=== PATIENT | male | born 2005 | race Asian ===

== ENCOUNTER 2023-07-25 09:27 | Outpatient (CLI) | payer OTHER, SELFPAY | END 2023-07-25 09:28 | disposition home or self-care (01) | LOC: AMB 08-14 23:20 | PROVIDERS: Visit Provider Emergency Medicine | DX: M54.9 Dorsalgia, unspecified (principal) | CPT/HCPCS: A0425; A0427 ==

== ENCOUNTER 2023-07-25 10:00 | Emergency (ER) | payer OTHER, SELFPAY ==
[2023-07-25 10:06] VITALS: BP 124/96; PULSE 71; RESP 16; TEMP 36.7; O2SAT 99; BMI 26.6
[2023-07-25] MEDS: METHYLPREDNISOLONE SOD SUCC 62.5 MG/ML (125) 125 MG IVP (10:59)
[2023-07-25] MEDS: OXYCODONE 5 MG TABLET PO (10:59)
[2023-07-25] MEDS: KETOROLAC 15 MG/ML inj IVP (10:59)
--- NOTE | 2023-07-25 11:32 | ED.NURSE ---
Road test patient around the ER nurses station. Patient ambulated fairly well, slight limp onto right leg towards the end.
--- NOTE | 2023-07-25 14:16 | ED.GENADULT ---
HPI - General Adult General Date Seen: 07/25/23 Chief complaint: Back Injury/Pain Stated complaint: Back Pain Time Seen by Provider: 07/25/23 10:23 Source: patient, EMS, RN notes reviewed and old records reviewed Mode of arrival: EMS Limitations: no limitations History of Present Illness HPI narrative: Patient is a 17-year-old [employer] student, originally from [place], goes by Dairel. Presents secondary to right leg pain and right buttock pain. He has had problems on and off with presumed lumbar radiculopathy he says for the past year so. He reports that he had an MRI in [place] and was diagnosed with a slipped disc. He says overall he has been able to manage, he will have periods where the pain is worse but tends to settle down pretty quickly. He was here at the end of April with a flare of pain, was treated with Toradol, muscle relaxers and steroids. He was seen after that I believe in an urgent care here for re-evaluation secondary to ongoing symptoms. He reports that he has been home for [facility] and just got back a few days ago. He says he was getting ?treatments in [place], this seems to have consisted primarily of massage. He has not had any injections. No repeat imaging. He reports for the past few days since getting back to [place] he has been having more problems with pain in the right leg. He says it starts in the right gluteus medius area and then extends down the outside of his leg all the way down to the foot. He actually does not have significant pain in his back. He denies numbness or tingling, no bowel or bladder changes, no fevers or chills. He came in by ambulance today when he says he got up this morning, took a few steps, had to lay down because of severe pain and did not feel like he could get himself here otherwise. He was given a total of 100 mcg of fentanyl in the ambulance. Reports improvement though not resolution of his pain. General health otherwise good, denies drug or alcohol use. Related Data Previous Rx's Medication Instructions Recorded gabapentin 300 mg capsule 300 mg PO TID PRN back pain #30 05/18/23 caps Allergies Allergy/AdvReac Type Severity Reaction Status Date / Time No Known Drug Allergies Allergy Verified 05/18/23 14:04 Review of Systems Status of ROS: Reports: 10 or more systems reviewed and unremarkable except as noted in History and below [facility] Medical History (Updated 07/25/23 @ 12:04 by Alma Alicea MD) Piriformis syndrome ?G57.00 - Lesion of sciatic nerve, unspecified lower limb (ICD-10) Social History Smoking Status: Never smoker How often do you have a drink containing alcohol: never AUDIT-C Alcohol total score: 0 Non-prescribed substance use: denies use Exam Narrative: Exam Narrative: Vital signs as noted above. In general, an alert, well-appearing patient. Head: Normocephalic, atraumatic. Eyes: Pupils are equal reactive. Extraocular movements are full. Conjunctivae are normal. ENT: Mucous membranes are moist. Throat is normal. Neck: Supple without lymphadenopathy. Heart: Regular rate and rhythm. No murmur or rub. Lungs: Clear bilaterally. No increased work of breathing, crackles or wheezes. Abdomen: Soft and nontender. No organomegaly. Extremities: Well perfused. No edema. No calf tenderness. Pulses intact. Neurologic: Patient is alert and oriented to person and place. Speech is fluent. Face is symmetric. Moves all extremities equally. Strength is 5 of 5 in bilateral lower extremities, sensation is intact to light touch. Affect: Normal. Skin: Warm and dry. Well perfused. Const: Vital Signs, click to edit/add: Vital Signs - 24 hr 07/25/23 10:06 Temperature 98.0 F Pulse Rate [Pulse Oximeter] 71 Respiratory Rate 16 Blood Pressure [Ri ght Upper Arm] 124/96 H Pulse Oximetry 99 Oxygen Delivery Me thod Room Air Documenting provider has reviewed patient's vital signs: yes Course Course ED Course: I reviewed previous records, his MRI was done in [place] and therefore is not accessible, but he reports that this showed a slipped disc. Reviewed with him that I think repeat imaging might be valuable at this time as if he does have a disc herniation causing radiculopathy an injection might be helpful for him. He had an oxycodone as well as 125 mg of Solu-Medrol IV and 15 mg of Toradol IV. He is ambulatory around the emergency department. Does note that with continued ambulation he develops more and more pain in his right leg limiting how far he is able to go. I recommended to him that he be seen in [facility], was going to set up follow-up for him here but he tells me that he is going to go back to [place] next week for further treatment of this. Did suggest that he pursue repeat imaging to see if a more invasive procedure such as an injection would be helpful for him versus only massage. Return at any time for acute worsening. No red flags to suggest he needs repeat imaging today in the ER. He says that the medications he received last time were not overly helpful, he requests something stronger. I reviewed the complications of using opioids for back pain, but under the circumstances I think it is reasonable to give him a small number for a day or to, presuming that this is related to disc herniation. Discussed that this is not a long-term solution, all the more reason to pursue an alternative such as injection. I gave prednisone, oxycodone # 8, as well as, at his request, Flexeril out of [employer]. 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 Vital Signs Vital signs: Initial Vital Signs Temperature 98.0 F 07/25/23 10:06 Temperature Source Temporal Artery Scan 07/25/23 10:06 Pulse Rate 71 07/25/23 10:06 Pulse Rhythm Regular 07/25/23 10:06 Respiratory Rate 16 07/25/23 10:06 Blood Pressure 124/96 H 07/25/23 10:06 Blood Pressure Mean 105 07/25/23 10:06 Blood Pressure Position Sitting 07/25/23 10:06 Pulse Oximetry 99 07/25/23 10:06 Oxygen Delivery Method Room Air 07/25/23 10:06 Vital Signs Temperature 98.0 F 07/25/23 10:06 Pulse Rate 71 07/25/23 10:06 Respiratory Rate 16 07/25/23 10:06 Blood Pressure 124/96 H 07/25/23 10:06 Pulse Oximetry 99 07/25/23 10:06 Oxygen Delivery Method Room Air 07/25/23 10:06 Temperature 98.0 F 07/25/23 10:06 Pulse Rate 71 07/25/23 10:06 Respiratory Rate 16 07/25/23 10:06 Blood Pressure 124/96 H 07/25/23 10:06 Pulse Oximetry 99 07/25/23 10:06 Oxygen Delivery Method Room Air 07/25/23 10:06 Medications Administered Medications: Discontinued Medications Generic Name Dose Route Start Last Admin Trade Name Freq PRN Reason Stop Dose Admin Ketorolac Tromethamine 15 mg 07/25/23 10:43 07/25/23 10:59 Ketorolac 15 Mg/Ml Inj IVP 07/25/23 10:44 15 mg ONCE ONE Administration Methylprednisolone Sodium Succinate 125 mg 07/25/23 10:43 07/25/23 10:59 Methylprednisolone Sod Succ 62.5 Mg/Ml (125) IVP 07/25/23 10:44 125 mg ONCE ONE Administration Oxycodone HCl 5 mg 07/25/23 10:43 07/25/23 10:59 Oxycodone 5 Mg Tablet PO 07/25/23 10:44 5 mg ONCE ONE Administration Discharge Plan Discharge Clinical Impression: Lumbar radiculopathy Patient Disposition: Home, Self-Care Condition: Improved Instructions: Lumbar Radiculopathy (ED) Additional Instructions: Medications as prescribed. I would strongly recommend follow-up with a spine clinic either here or in [place], I think repeat imaging would be reasonable to see if your symptoms may respond to a spinal injection. Prednisone as follows: 3 tablets daily for 3 days, followed by 2 tablets daily for 3 days, then 1 tablet daily for 3 days. Prescriptions: No Action gabapentin 300 mg capsule 300 mg PO TID PRN (Reason: back pain) Qty: 30 0RF Follow Up/Referrals: Provider,Not a Local [Primary Care Provider] - Stand Alone Forms: MyHealth Info Instructions
== END 2023-07-25 12:48 | disposition home or self-care (01) ==
PROVIDERS: Emergency Provider Emergency Medicine
DX: M54.16 Radiculopathy, lumbar region (principal)
CPT/HCPCS: 96374; 96375; 99284; A9270; J1885; J2930